=== PATIENT | female | born 1985 | race Caucasian/White ===

== ENCOUNTER → 2016-12-06 | Outpatient (CLI) | payer OTHER | LOC: FIMAGING 14:26 | PROVIDERS: ATTEND Obstetrics & Gynecology | DX: Z34.01 Encounter for supervision of normal first pregnancy, first trimester (principal); Z3A.11 11 weeks gestation of pregnancy ==

== ENCOUNTER 2017-06-15 06:00 | Inpatient (IN) | payer OTHER ==
[2017-06-19] MEDS ORDERED: OXYTOCIN 10 UNIT/ML VIAL ONE ×2 (07:12→15:41)
--- NOTE | 2017-06-19 08:12 | OBPROG ---
Labor Progress Note Assessment/Plan: Assessment:cat 1 fhr denies regular contractions exam 75/-2 posterior cephalic normotensive Plan:iol elective 06/19/17 08:10 Subjective/Intrapartum Course: 06/19/17 08:09 Doing well denies difficulties. Denies pain and regular contractions. - SVE Dilation (cm): 3 Effacement (%): 75 Station: -2 Membranes: Intact - Contraction Pattern Assessment Current Contraction Pattern: Irregular - FHR Assessment Lewis FHR (bpm): 135 FHR Pattern Variability: Moderate FHR Category: 1 - Physical Exam General Appearance: WD/WN, alert, no apparent distress Respiratory: chest non-tender, lungs clear, normal breath sounds Cardiac/Chest: regular rate, rhythm Abdomen: normal bowel sounds Extremities: Albino's sign (negative bilaterlly) DTR- Lower Extremities: Knee (R): 1+, Knee (L): 1+ (no clonus) Skin: normal color, warm/dry Neuro/Psych: no motor/sensory deficits, alert, normal mood/affect, oriented x 3 ICD10 Worksheet Patient Problems: Problems Problem Status Onset iol elective Acute
[2017-06-19] MEDS ORDERED: OXYTOCIN 20 UNIT in LR 1,000 ML IV PRN (08:27)
[2017-06-19] MEDS ORDERED: EPSOM SALT 454 GM TP PRN (08:27)
[2017-06-19] MEDS ORDERED: LR 1,000 ML IV PRN (08:27)
[2017-06-19] MEDS ORDERED: TERBUTALINE SULFATE 1 MG/ML VIAL IV PRN (08:27)
[2017-06-19] MEDS ORDERED: OLIVE OIL 118 ML BTL MISC PRN (08:27)
[2017-06-19 08:48] LABS: % IMMATURE GRANULYOCYTES 0.3 % (0.0-1.1); ABSOLUTE IMMATURE GRANULOCYTES 0.02 10^3/uL (0.00-0.10); ADD DIFF? NO; ADD MORPH? NO; ADD SCAN? NO; ATYPICAL LYMPHOCYTE FLAG 10 (0-99); FRAGMENT RBC FLAG 0 (0-99); HEMATOCRIT 32.5 % (38.0-47.0); HEMOGLOBIN 11.7 g/dL (12.6-16.3); LEFT SHIFT FLG 0 (0-99); LIPEMIA HEMOLYSIS FLAG 90 (0-99); MEAN CELL HEMOGLOBIN 34.8 pg (27.9-34.1); MEAN CELL VOLUME 96.7 fL (81.5-99.8); MEAN PLATELET VOLUME 9.9 fL (8.7-11.7); PLATELET CLUMPS FLAG 0 (0-99); PLATELET COUNT 253 10^3/uL (150-400); RED BLOOD CELL COUNT 3.36 10^6/uL (4.18-5.33); RED CELL DISTRIBUTION WIDTH 12.7 % (11.5-15.2)
--- NOTE | 2017-06-19 10:13 | GHP ---
[f rep st] HISTORY AND PHYSICAL DATE OF ADMISSION: 06/19/2017 HISTORY OF PRESENT ILLNESS: Patient is a 31-year-old, 1, para 0, with an EDC of 06/20/2017, who comes in on 06/19/2017 for induction of labor, gestational age of 39 and 6/7 weeks'. States feel ing positive movement. Denies leaking, bleeding, and actually states damp but no rupture of me mbranes. Denies bleeding. Denies regular contractions. The patient was a transfer of care at 20 we eks to [facility]. MEDICAL HISTORY: Anemia, anxiety, breast reduction. SURGICAL HISTORY: Breast reduction. ALLERGIES: NKDA. MEDICATIONS: vitamins. FAMILY HISTORY: Noncontributory. SOCIAL HISTORY: Denies tobacco use. Denies drug use. Significant other is Silvio. HISTORY: Marginal cord insertion. Frequent growth ultrasounds last 1 was at 34-36 weeks. At that time, the baby was estimated weight at 78 percentile. UCHE was 19. PHYSICAL ASSESSMENT: GENERAL: Patient is awake, alert, oriented x3. LUNGS: Clear bilaterally. AB DOMEN: Bowel sounds are positive in all 4 quadrants. EXTREMITIES: DTRs are 1+ bilaterally. Homans sign is negative bilaterally. LABS: RPR is nonreactive. Gonorrhea and chlamydia were negative. Hepatitis B was negative. HIV wa s negative. Rubella was immune. Group beta strep was negative. Varicella was immune. The patient' s blood type is O positive. Antibody screen was negative. PLAN OF CARE: 1. Group beta strep negative. 2. Pitocin per protocol. 3. Expectant management of labor. 4. Patient is requesting epidural for pain relief when indicated. /[id number]/MODL
[2017-06-19] MEDS ORDERED: BUPIVACAINE 0.25% 30 ML SDV ONE (13:03)
[2017-06-19] MEDS ORDERED: PHENYLEPHRINE HCL 100 MCG/ML SYR ONE (13:03)
[2017-06-19] MEDS ORDERED: fentaNYL 100 MCG/2 ML INJ ONE (13:04)
--- NOTE | 2017-06-19 13:10 | OBPROG ---
Labor Progress Note Assessment/Plan: Assessment:cat 1 fhr feeling greater pain with the contractions exam /-2 posterior cephalic/ will recheck patient after the epidural for poc normotensive pitocin per protocol 16mu epidural for pain relief Plan:pitocin per protocol/epidural at patients request 06/19/17 08:10 06/19/17 13:08 06/19/17 13:10 Subjective/Intrapartum Course: 06/19/17 08:09 Doing well denies difficulties. Denies pain and regular contractions. 06/19/17 13:09 Feeling greater pain desires an epidural Objective: 06/19/17 08:05 Patient ABO/Rh O POSITIVE 06/19/17 08:05 - SVE Membranes: Intact - Contraction Pattern Assessment Current Contraction Pattern: Irregular ICD10 Worksheet Patient Problems: Problems Problem Status Onset iol elective Acute
[2017-06-19] MEDS ORDERED: ONDANSETRON 4 MG/2 ML VIAL IVP PRN (13:40)
[2017-06-19] MEDS ORDERED: PHENYLEPHRINE HCL 100 MCG/ML SYR IVP PRN (13:40)
--- NOTE | 2017-06-19 13:43 | POSTANESTH ---
Post Anesthetic Evaluation Cardiovascular Status: Normal, Stable, Similar to Pre-Op Cond Respiratory Status: Normal, Stable, Similar to Pre-op Cond. Level of Consciousness/Mental Status: Can Participate in Eval, Alert and Oriented Pain Control: Adequate, Prn Tx Ordered Nausea/Vomiting Control: Adequate, Prn Tx Ordered Complications Possibly Related to Anesthesia: None Noted
--- NOTE | 2017-06-19 13:54 | OBPROG ---
Labor Progress Note Assessment/Plan: Assessment:cat 2 fhr denies pain after the epidural exam 4/90/0 anterior cephalic arom clear fluid normotensive pitocin per protocol reduced to 12 mu Plan:pitocin continues / epidural for pain relief 06/19/17 08:10 06/19/17 13:08 06/19/17 13:10 06/19/17 13:52 Subjective/Intrapartum Course: 06/19/17 08:09 Doing well denies difficulties. Denies pain and regular contractions. 06/19/17 13:09 Feeling greater pain desires an epidural 06/19/17 13:52 Doing well feeling more comfortable with the epidural. Denies pain. Objective: 06/19/17 08:05 Patient ABO/Rh O POSITIVE 06/19/17 08:05 - SVE Dilation (cm): 4 Effacement (%): 90 Station: 0 Membranes: AROM Amniotic Fluid Color: Clear - Contraction Pattern Assessment Current Contraction Pattern: Regular - FHR Assessment Lewis FHR (bpm): 135 FHR Pattern Variability: Moderate FHR Category: 2 - Procedures Non-surgical Procedures: Amniotomy ICD10 Worksheet Patient Problems: Problems Problem Status Onset iol elective Acute
[2017-06-19] MEDS ORDERED: OXYTOCIN 30 UNIT in NS 500 ML IV SCH (14:00)
[2017-06-19] MEDS ORDERED: fentaNYL 200 MCG, BUPIVACAINE 0.5% 20 ML in NS 100 ML EP SCH (14:00)
[2017-06-19] MEDS ORDERED: fentaNYL 2MCG/ML/BUP 0.1% RTU 100 ML EP SCH (14:00)
[2017-06-19] MEDS ORDERED: LR 500 ML IV SCH (14:00)
--- NOTE | 2017-06-19 14:00 | PREANESOB ---
Obstetric Pre-Anesthesia Info - General Info Proposed Procedure: Labor and delivery with pitocin. : 1 Para: 0 - Info Status: Full Term Monitors: External FHR Baseline (bpm): 120 FHR Pattern: Reassuring - Labor Status Cervical Dilation per last OB SVE: 4 Station per last OB SVE: 0 Amniotic Fluid Color: Clear Pitocin: In Use Indications for Labor Analgesia: Induction of Labor, Pain Control Labor Epidural: Proposed Anesthesia ROS: General anesthesia for breast surgery. Allergies/Adverse Reactions: Allergy/AdvReac Type Severity Reaction Status Date / Time No Known Allergies Allergy Unverified 06/19/17 08:09 Visit Medications: Generic Name Dose Route Start Last Admin Trade Name Freq PRN Reason Stop Dose Admin Diphenhydramine HCl 25 - 50 mg 06/19/17 13:40 Benadryl Injection IVP 12/16/17 13:39 Q6HRS PRN Itching Lactated Ringer's 1,000 mls @ 0 mls/hr 06/19/17 08:27 Lr IV 06/20/17 08:26 PRN PRN SEE PROTOCOL CONDITIONS Protocol Per Protocol Oxytocin 20 unit/ Lactated 1,002 mls @ 150 mls/hr 06/19/17 08:27 Ringer's IV PRN PRN Post- bleeding Lactated Ringer's 500 mls @ 0 mls/hr 06/19/17 14:00 Lr IV 12/16/17 13:59 [facility] As Directed Fentanyl 200 mcg/ Bupivacaine 124 mls @ 0 mls/hr 06/19/17 14:00 HCl 20 ml/ Sodium Chloride EP 06/19/17 14:01 [facility] Protocol As Directed Oxytocin 30 unit/ Sodium 503 mls @ 0 mls/hr 06/19/17 14:00 Chloride IV 12/16/17 13:59 [facility] Per Protocol Ibuprofen 600 mg 06/19/17 08:27 Motrin PO 12/16/17 08:26 Q6HRS PRN post , inflammation Magnesium Sulfate 454 gm 06/19/17 08:27 Epsom Salt TP 12/16/17 08:26 Q1H PRN perineal discomfort Cedar Oil 118 ml 06/19/17 08:27 Sweet Oil MISC 12/16/17 08:26 ONCE PRN perineal massage Ondansetron HCl 4 mg 06/19/17 13:40 Zofran IVP 06/20/17 13:39 Q4HRS PRN Nausea/Vomiting, Can't Take PO Phenylephrine HCl 100 mcg 06/19/17 13:40 Neosynephrine IVP 12/16/17 13:39 .Q2M PRN Hypotension Terbutaline Sulfate 0.25 mg 06/19/17 08:27 Brethine IV 12/16/17 08:26 ONCE PRN Tachysystole Discontinued Medications Generic Name Dose Route Start Last Admin Trade Name Chao PRN Reason Stop Dose Admin Bupivacaine HCl Confirm 06/19/17 13:03 Sensorcaine 0.25% Sdv Administered 06/19/17 13:04 Dose 30 ml .ROUTE .STK-MED ONE Fentanyl Confirm 06/19/17 13:04 Sublimaze Administered 06/19/17 13:05 Dose 100 mcg .ROUTE .STK-MED ONE Fentanyl/Bupivacaine HCl 100 mls @ 0 mls/hr 06/19/17 14:00 Fentanyl/Bupivacaine/Ns 2 Mcg/Ml 0.1% (Premix EP 06/29/17 13:59 CONT [facility] Protocol As Directed Oxytocin Confirm 06/19/17 07:12 Pitocin Administered 06/19/17 07:13 Dose 30 unit .ROUTE .STK-MED ONE Phenylephrine HCl Confirm 06/19/17 13:03 Neosynephrine Administered 06/19/17 13:04 Dose 1,000 mcg .ROUTE .STK-MED ONE - Anesthesia History Response to Local Anesthetics: Normal Anesthesia & Operative History: No Prior Problems Family Anesthesia History: Negative - Social History Substance Use/Abuse: Denies - Vital Signs Blood Pressure: 118/56 Heart Rate: 64 Respiratory Rate: 16 Height/Weight (Nursing): Height 167.64 cm Weight 81.647 kg - Focused Exam Neck exam: FROM Mallampati Score: Class 1 Mouth exam: normal dental/mouth exam Pulmonary: no respiratory distress Cardiovascular: regular rate and rhythym Labs: 06/19/17 08:05 Patient ABO/Rh O POSITIVE 06/19/17 08:05 - Plan Anesthetic Plan: CANDELARIO Consent Signed and on Chart: Yes Patient/Guardian Understands and Agrees to Plan: Yes Urgent/Emergent Case: Alisa palma completed preop but documented later for safe timely pt care
[2017-06-19] MEDS ORDERED: OLIVE OIL 118 ML BTL ONE (15:41)
[2017-06-19] MEDS ORDERED: LIDOCAINE 1% 300 MG/30 ML SDV ONE (15:41)
[2017-06-19] MEDS ORDERED: AMMONIA AROMATIC 1 EACH AMP IH ONE (15:41)
[2017-06-19] MEDS ORDERED: MISOPROSTOL 200 MCG TAB ONE (15:42)
[2017-06-19] MEDS: IBUPROFEN 600 MG TAB PO PRN ×2 (16:09→21:41)
--- NOTE | 2017-06-19 16:14 | OBDEL ---
Info Type: Vaginal Presentation at Delivery: Vertex L&D Analgesia/Anesthesia Type: Epidural GBS+: No - Hospital Course Intrapartum: 06/19/17 08:09 Doing well denies difficulties. Denies pain and regular contractions. 06/19/17 13:09 Feeling greater pain desires an epidural 06/19/17 13:52 Doing well feeling more comfortable with the epidural. Denies pain. Indications for Delivery: Elective Vaginal Delivery - Delivery Provider Delivery Physician/CNM: Payal Erazo Proctoring Provider: Marielena Nye - Labor and Delivery Onset of Contractions Date: 06/19/17 Onset of Contractions Time: 09:00 Rupture of Membranes Date: 06/19/17 Rupture of Membranes Time: 13:38 Rupture of Membranes Type: Artificial Amniotic Fluid Color: Clear Dilation Complete Date: 06/19/17 Dilation Complete Time: 14:50 Placenta Delivery Date: 06/19/17 Placenta Delivery Time: 15:52 Total Hours of Labor: 6 Non-surgical Procedures: Amniotomy Laceration: Other (Specify) (vaginal) Repair: 3-0, Vicryl Vaginal Sponge Count Correct: Yes Vaginal Needle Count Correct: Yes Vaginal Sweep Performed: No EBL: 350 Delivery Events: None - Medications Labor Augmentation/Induction Methods Used: Pitocin [place] Data DELFINO: 06/20/17 Gestational Age: 39 week(s) and 6 day(s) Lewis Delivery Date: 06/19/17 Delivery Time: 15:48 Sex of Infant: Male Score (1 Min): 8 Score (5 Min): 9 ICD10 Worksheet Patient Problems: Problems Problem Status Onset iol elective Acute
--- NOTE | 2017-06-19 16:19 | OBPROG ---
Labor Progress Note Assessment/Plan: Assessment:cat 2 fhr denies pain after the epidural exam 4/90/0 anterior cephalic arom clear fluid normotensive pitocin per protocol reduced to 12 mu Plan:pitocin continues / epidural for pain relief 06/19/17 08:10 06/19/17 13:08 06/19/17 13:10 06/19/17 13:52 Subjective/Intrapartum Course: edc 06/20/2017 elective iol arom clear fluid repair of vaginal tear with 3.0 vicryl . 350 ebl with support breast reduction 06/19/17 08:09 Doing well denies difficulties. Denies pain and regular contractions. 06/19/17 13:09 Feeling greater pain desires an epidural 06/19/17 13:52 Doing well feeling more comfortable with the epidural. Denies pain. 06/19/17 16:17 Objective: 06/19/17 08:05 Patient ABO/Rh O POSITIVE 06/19/17 08:05 Temp Pulse Resp BP Pulse Ox 64 16 118/56 L 06/19/17 14:20 06/19/17 14:20 06/19/17 14:20 - SVE Membranes: AROM Amniotic Fluid Color: Clear Dilation Complete Date: 06/19/17 Dilation Complete Time: 14:50 - Contraction Pattern Assessment Current Contraction Pattern: Regular - Procedures Non-surgical Procedures: Amniotomy - AP Antepartum Course: [facility] 06/20/2017 anemia transfer of care at 20 weeks. marginal cord insertion. breast reduction. 06/19/17 16:15 ICD10 Worksheet Patient Problems: Problems Problem Status Onset iol elective Acute
[2017-06-19] MEDS ORDERED: HYDROCORTISONE 0.5% CREAM TP PRN (16:52)
[2017-06-19] MEDS ORDERED: SIMETHICONE 80 MG TAB CHEW PO PRN (16:52)
[2017-06-19] MEDS ORDERED: HYDROCODONE/APAP 5/325 TAB PO PRN (16:52)
[2017-06-19] MEDS ORDERED: ACETAMINOPHEN 325 MG TAB PO PRN (16:52)
[2017-06-20] MEDS: IBUPROFEN 600 MG TAB PO PRN ×4 (03:46→21:48)
[2017-06-20] MEDS: DOCUSATE SODIUM 100 MG CAP PO PRN ×2 (10:11→21:47)
--- NOTE | 2017-06-20 10:45 | OBPP ---
Progress Note Assessment/Plan: Assessment: 31 y/o PPD #1 s/p doing well. Plan: support, routine PPC. Likely d/c home tomorrow. 06/20/17 10:45 Subjective/ Course: 06/20/17 10:41 Pt is doing well this am. She is really happy with her delivery. She is ambulating and voiding well and has min lochia. Baby is doing well and they are working on breast feeding. Objective: 06/20/17 05:25 Patient ABO/Rh O POSITIVE 06/19/17 08:05 Temp Pulse Resp BP Pulse Ox 36.7 C 77 18 100/60 96 06/20/17 08:00 06/20/17 08:00 06/20/17 08:00 06/20/17 08:00 06/20/17 08:00 Uterine Position/Fundal Height: Umbilicus -2 Uterine Tone: Firm Physical Exam - Physical Exam Neck: non-tender, full range of motion, supple Respiratory: chest non-tender, lungs clear Cardiac/Chest: regular rate, rhythm Abdomen: normal bowel sounds Extremities: swelling (no), Albino's sign (neg)
[2017-06-20] MEDS: IRON POLYSAC/IRON HEME 28 MG TAB PO SCH (21:47)
[2017-06-21] MEDS: IBUPROFEN 600 MG TAB PO PRN ×2 (03:42→11:07)
[2017-06-21 08:29] VITALS: BP 104/67; PULSE 73; RESP 18; TEMP 98.2; O2SAT 97
[2017-06-21] MEDS: DOCUSATE SODIUM 100 MG CAP PO PRN (11:08)
[2017-06-21] MEDS: IRON POLYSAC/IRON HEME 28 MG TAB PO SCH (11:08)
--- NOTE | 2017-06-21 13:16 | OBPP ---
Progress Note Assessment/Plan: Assessment: ppd# 2 s/p uncomplicated post course breast feeding Rh +/Rubella Immune/GBS neg Plan: routine discharge instructions 06/21/17 13:13 Subjective/ Course: 06/20/17 10:41 Pt is doing well this am. She is really happy with her delivery. She is ambulating and voiding well and has min lochia. Baby is doing well and they are working on breast feeding. 06/21/17 13:15 patient is doing well. pain is well controlled. normal lochia. breast feeding is going well. denies headache and changes in vision. ready to go home ! Objective: 06/20/17 05:25 Patient ABO/Rh O POSITIVE 06/19/17 08:05 Temp Pulse Resp BP Pulse Ox 36.8 C 73 18 104/67 97 06/21/17 08:03 06/21/17 08:03 06/21/17 08:03 06/21/17 08:03 06/21/17 08:03 Uterine Position/Fundal Height: Umbilicus -2 Physical Exam - Physical Exam Neck: non-tender, full range of motion Respiratory: chest non-tender, lungs clear, normal breath sounds Cardiac/Chest: normal peripheral pulses, regular rate, rhythm Abdomen: normal bowel sounds, non-tender Extremities: normal range of motion, non-tender, normal inspection, normal capillary refill Skin: normal color, warm/dry Neuro/Psych: no motor/sensory deficits, alert, normal mood/affect, oriented x 3
--- NOTE | 2017-06-21 13:19 | OBGCSDC ---
General Delivery Information - General Info : 1 Para: 1 Abortions: 0 Type: Vaginal L&D Analgesia/Anesthesia Type: Epidural Admission Date: 06/19/17 Labs: Patient ABO/Rh O POSITIVE 06/19/17 08:05 Hct 30.1 % (38.0-47.0) L 06/20/17 05:25 - Hospital Course Antepartum: [facility] 06/20/2017 anemia transfer of care at 20 weeks. marginal cord insertion. breast reduction. 06/19/17 16:15 Intrapartum: edc 06/20/2017 elective iol arom clear fluid repair of vaginal tear with 3.0 vicryl . 350 ebl with support breast reduction 06/19/17 08:09 Doing well denies difficulties. Denies pain and regular contractions. 06/19/17 13:09 Feeling greater pain desires an epidural 06/19/17 13:52 Doing well feeling more comfortable with the epidural. Denies pain. 06/19/17 16:17 : 06/20/17 10:41 Pt is doing well this am. She is really happy with her delivery. She is ambulating and voiding well and has min lochia. Baby is doing well and they are working on breast feeding. 06/21/17 13:15 patient is doing well. pain is well controlled. normal lochia. breast feeding is going well. denies headache and changes in vision. ready to go home ! Vaginal - Delivery Provider Delivery Physician/CNM: Payal Erazo - Diagnosis Rupture of Membranes Type: Artificial Amniotic Fluid Color: Clear Laceration: Other (Specify) (vaginal) Repair: 3-0, Vicryl Delivery Events: None - Procedures Non-surgical Procedures: Amniotomy - Delivery Non-surgical Procedures: Amniotomy [place] Data DELFINO: 06/20/17 Gestational Age: 40 week(s) and 1 day(s) Lewis Delivery Date: 06/19/17 Delivery Time: 15:48 Sex of Infant: Male Score (1 Min): 8 Score (5 Min): 9 Discharge Information - Discharge Information Prescriptions: Ibuprofen [Motrin (*)] 600 mg PO Q6HRS PRN #30 tab PRN Reason: post , inflammation Condition: Good Instruction/Follow Up: Four Weeks (post mood check ), Six Weeks (post visit.)
== END 2017-06-21 14:10 | disposition home or self-care (01) | DRG 775 ==
LOC: FLD 06-19 06:18 → FOB 06-19 19:09
PROVIDERS: ADMIT Obstetrics & Gynecology; ATTEND Obstetrics & Gynecology
DX: O71.4 Obstetric high vaginal laceration alone (principal); Z37.0 Single live birth; Z3A.40 40 weeks gestation of pregnancy
CPT/HCPCS: J2370; J3010

== ENCOUNTER → 2017-06-28 | Outpatient (CLI) | payer OTHER | LOC: FIMAGING 13:05 | PROVIDERS: ATTEND Advanced Practice Midwife | DX: Z39.1 Encounter for care and examination of lactating mother (principal) | CPT/HCPCS: G0463 ==